=== PATIENT | female | born 1980 | race Two or more races ===

== ENCOUNTER 2023-07-12 18:46 | Emergency (ER) | payer OTHER ==
[~2023-07-12] VITALS: Ht 167.6 cm; Wt 55.8 kg
[2023-07-13 03:13] LABS: PH,URINE 6.5 (5.0-8.0); URINE APPEARANCE Cloudy; URINE BILIRRUBIN Negative (NEGATIVE); URINE BLOOD Trace; URINE COLOR Yellow; URINE GLUCOSE Negative (NEGATIVE); URINE LEUKOCYTE Small; URINE NITRATE Negative; URINE PROTEIN Negative (NEGATIVE); URINE UROBILINOGEN 0.2 E.U./dl
[2023-07-13 04:00] LABS: URINE EPITHELIAL CELLS 4.7 uL (0.0-38.8); URINE RBC 6.3 uL (0.0-20.8); URINE WBC 137.6 uL (0.0-23.2)
[2023-07-13 04:01] LABS: URINE BACTERIA 18.8 uL (0.0-1933)
== END 2023-07-13 04:32 | disposition home or self-care (01) ==
LOC: ER 18:46
DX: R30.0 Dysuria (principal); Z88.8 Allergy status to other drugs, medicaments and biological substances

== ENCOUNTER 2023-07-16 14:33 | Outpatient (CLI) | payer OTHER | END 2023-07-16 14:42 | disposition home or self-care (01) | LOC: SONOGRAMA 14:33 | PROVIDERS: ATTEND General Practice | DX: R30.0 Dysuria (principal); N39.0 Urinary tract infection, site not specified; Z13.6 Encounter for screening for cardiovascular disorders; R94.6 Abnormal results of thyroid function studies; Z00.8 Encounter for other general examination ==

== ENCOUNTER 2023-07-30 09:29 | Outpatient (CLI) | payer OTHER | END 2023-07-30 09:50 | disposition home or self-care (01) | LOC: TOM 09:29 | PROVIDERS: ATTEND Specialist | DX: N20.0 Calculus of kidney (principal) ==